=== PATIENT | female | born 1985 | race Caucasian/White ===

== ENCOUNTER 2017-04-14 00:24 | Emergency (ER) | payer MEDICAID ==
[2017-04-14 00:44] VITALS: O2SAT 98
--- NOTE | 2017-04-14 00:49 | EDPHY ---
H & P Stated Complaint: SI, NO SPECIFIC PLAN, CALLED CRISIS LINE Source: Patient - Personal History LMP (Females 10-55): 15-21 Days Ago Current Tetanus/Diphtheria Vaccine: Yes Tetanus Vaccine Date: 10/26/14 - Medical/Surgical History Hx Asthma: No Hx Chronic Respiratory Disease: No Hx Diabetes: No Hx Cardiac Disease: No Hx Renal Disease: No Hx Cirrhosis: No Hx Alcoholism: No Hx HIV/AIDS: No Hx Splenectomy or Spleen Trauma: No Other PMH: PMHx: RA,HYPOTHYROID, FIBROMYALGIA, anxiety, depression, SI w/ attempts. PSHx: denies - Social History Smoking Status: Former smoker HPI/ROS: HPI CHIEF COMPLAINT: Suicidal thoughts, severe depression HISTORY OF PRESENT ILLNESS: Patient very pleasant 31-year-old female, she has a history of severe depression with multiple psychiatric hospitalizations a suicide attempt in the past, she presents emergency room with suicidal ideation without a specific plan but is been feeling more depressed over the few days. She called the crisis hotline and [facility] was recommended come the emergency room. She came involuntary. She does state she feels suicidal. Worsening depression. She has not made any attempt tonight. Past Medical History: Severe depression with multiple psychiatric hospitalization Past Surgical History: No recent surgery Social History: Denies drugs alcohol tobacco. Family History: Noncontributory ROS REVIEW OF SYSTEMS: A comprehensive 10 point review of systems is otherwise negative aside from elements mentioned in the history of present illness. Exam Constitutional appears well nontoxic triage nursing summary reviewed, vital signs reviewed, awake/alert. Eyes normal conjunctivae and sclera, EOMI, PERRLA. HENT normal inspection, atraumatic, moist mucus membranes, no epistaxis, neck supple/ no meningismus, no raccoon eyes. Respiratory clear to auscultation bilaterally, normal breath sounds, no respiratory distress, no wheezing. Cardiovascular rate normal, regular rhythm, no murmur, no edema, distal pulses normal. Gastrointestinal soft, non-tender, no rebound, no guarding, normal bowel sounds, no distension, no pulsatile mass. Genitourinary no CVA tenderness. Musculoskeletal no midline vertebral tenderness, full range of motion, no calf swelling, no tenderness of extremities, no meningismus, good pulses, neurovascularly intact. Skin pink, warm, & dry, no rash, skin atraumatic. Neurologic awake, alert and oriented x 3, AAOx3, moves all 4 extremities equally, motor intact, sensory intact, CN II-XII intact, normal cerebellar, normal vision, normal speech. Psychiatric flat affect. Heme/Lymph/Immune no lymphadenopathy. Differential Diagnosis: Includes but is not limited to in a particular order severe depression, mood disorder, bipolar disorder, suicidal ideation. Medical Decision Making: Plan for this patient IV establishment blood draw for medical clearance. Patient need mental health evaluation. Re-evaluation: 0453: Patient has been seen evaluated by mental health. They would like to place her on M1 hold. They would like to pursue inpatient psychiatric hospitalization at most likely [address] [place] [address]. (Vivek Marquez) Constitutional: Initial Vital Signs Temperature (C) 36.6 C 04/14/17 00:40 Heart Rate 110 H 04/14/17 00:40 Respiratory Rate 18 04/14/17 00:40 Blood Pressure 135/96 H 04/14/17 00:40 O2 Sat (%) 98 04/14/17 00:40 O2 Delivery Mode Room Air Allergies/Adverse Reactions: No Known Allergies Allergy (Verified 04/14/17 00:38) Home Medications: Medication Instructions Recorded oxyCODONE IR [Oxycodone Ir (*)] 5 mg PO BID PRN 10/12/12 Tofacitinib Citrate [Xeljanz] 5 mg PO BID #0 10/27/14 Leflunomide [Arava 20 mg (*)] 20 mg PO Q2D 10/28/14 Multivitamins [Multivitamin (*)] 1 each PO HS 10/28/14 [place]-3 Fatty Acids [Fish Oil 1000 1,000 mg PO HS 10/28/14 mg (*)] Levothyroxine [Synthroid 125 mcg 125 mcg PO DAILY06 #30 tab 12/10/14 (*)] clonazePAM [klonoPIN (*)] 1 mg PO DAILY PRN #30 tab 12/10/14 Cyclobenzaprine [Flexeril 10 MG 10 mg PO HS PRN 11/22/15 (*)] Herbals/Supplements -Info Only 1 ea PO DAILY 11/22/15 Amphet Asp and D/Amphet [Adderall 20 mg PO BID@, #14 tab 11/27/15 20 mg (*)] Venlafaxine Xr [Effexor Xr] 300 mg PO DAILY #60 cap 11/27/15 ARIPiprazole [Abilify 10 mg (*)] 10 mg PO HS 04/14/17 buPROPion SR [Wellbutrin 100mg SR 200 mg PO DAILY 04/14/17 (*)] Medical Decision Making ED Course/Re-evaluation: 0700AM: Patient signed over to Dr. Bebeto Snider at 7am shift Change. (Vivek Marquez) I took over care of this patient at 3:00 p.m.. This patient is on an M1 hold for suicidal ideation and depression. She also has a history of recent polysubstance abuse. She is awaiting behavioral health evaluation. She has been medically cleared. (Shelia Tenorio) Care was turned over to me by Dr. Marquez at 7:00 a.m.. Patient is re- evaluated at 7:35 a.m.. Patient is sleeping. Vital signs are stable. Labs are reviewed. Mental health evaluation has been performed and placement is pending Patient remained stable. She has been given her regular prescribed medications 3:30 p.m. patient has been evaluated and accepted for admission at crisis stabilization unit at the [facility]. Appropriate paperwork has been filled out (Bebeto Snider) - Data Points Laboratory Results: Laboratory Results 04/14/17 01:12 04/14/17 01:12 Medications Given: Leflunomide (Arava) 20 mg PO DAILY [facility] Stop: 10/11/17 14:44 Last Admin: 04/14/17 15:31 Dose: 20 mg Venlafaxine HCl (Effexor Xr) 300 mg PO DAILY [facility] Stop: 10/11/17 14:44 Last Admin: 04/14/17 15:31 Dose: 300 mg Discontinued Medications Ibuprofen (Motrin) 600 mg PO EDNOW ONE Stop: 04/14/17 02:33 Last Admin: 04/14/17 02:34 Dose: 600 mg Lorazepam (Ativan) 1 mg PO EDNOW ONE Stop: 04/14/17 14:43 Last Admin: 04/14/17 15:31 Dose: 1 mg Departure - Departure Disposition: Other Psych, Not [place] Clinical Impression: Suicidal ideation Depression Qualifiers: Depression Type: major depressive disorder Major depression recurrence: recurrent Active/Remission status: currently active Major depression episode severity: severe Psychotic features: without psychotic features Qualified Code(s ): F33.2 - Major depressive disorder, recurrent severe without psychotic features Condition: Fair Referrals: Eloise Adams [Primary Care Provider] - As per Instructions
[2017-04-14 01:20] LABS: PLATELET COUNT 201 10^3/uL (150-400)
[2017-04-14] MEDS ORDERED: IBUPROFEN 600 MG TAB PO ONE (02:32)
[2017-04-14 07:58] VITALS: RESP 16
[2017-04-14] MEDS ORDERED: LORazepam 1 MG TAB PO ONE (14:42)
[2017-04-14] MEDS ORDERED: LEFLUNOMIDE 20 MG TAB PO SCH (14:45)
[2017-04-14] MEDS ORDERED: VENLAFAXINE XR 150 MG CAP PO SCH (14:45)
[2017-04-14 15:53] VITALS: BP 120/84; PULSE 82; TEMP 98.1
== END 2017-04-14 15:53 ==
DX: R45.851 Suicidal ideations (principal); F33.2 Major depressive disorder, recurrent severe without psychotic features; Z87.891 Personal history of nicotine dependence
CPT/HCPCS: 80305; G0480

== ENCOUNTER 2017-11-08 13:37 | Emergency (ER) | payer MEDICAID ==
[2017-11-08 13:47] VITALS: BP 132/102
--- NOTE | 2017-11-08 14:10 | EDPHY ---
H & P Stated Complaint: Feeling shaky and anxious this am, thinks r/t effexor. Time Seen by Provider: 11/08/17 14:09 HPI/ROS: CHIEF COMPLAINT: Concerned about serotonin syndrome HISTORY OF PRESENT ILLNESS: The patient presents to the ED with complaints of anxiety, restlessness and mild diaphoresis. She is concerned about the possibility of serotonin syndrome. The patient recently has been decreasing her Effexor dose. This was done because she was having similar symptoms several weeks ago. The patient denies any autonomic instability. She denies any complaints of chest pain or shortness of breath. The patient denies any suicidal or homicidal ideation. She is scheduled to see her prescriber at [facility] next week. REVIEW OF SYSTEMS: A comprehensive 10 point review of systems is otherwise negative aside from elements mentioned in the history of present illness. Source: Patient Exam Limitations: No limitations - Personal History LMP (Females 10-55): 15-21 Days Ago Current Tetanus Diphtheria and Acellular Pertussis (TDAP): Yes Tetanus Vaccine Date: 10/26/14 - Medical/Surgical History Hx Asthma: No Hx Chronic Respiratory Disease: No Hx Diabetes: No Hx Cardiac Disease: No Hx Renal Disease: No Hx Cirrhosis: No Hx Alcoholism: No Hx HIV/AIDS: No Hx Splenectomy or Spleen Trauma: No Other PMH: PMHx: RA,HYPOTHYROID, FIBROMYALGIA, anxiety, depression, SI w/ attempts. PSHx: denies - Social History Smoking Status: Former smoker - Physical Exam Exam: General Appearance: Alert, no distress Eyes: Pupils equal and round no pallor or injection ENT, Mouth: Mucous membranes moist Respiratory: There are no retractions, lungs are clear to auscultation Cardiovascular: Regular rate and rhythm Gastrointestinal: Abdomen is soft and nontender, no masses, bowel sounds normal Neurological: A&O, normal motor function, normal sensory exam, normal cranial nerves Skin: Warm and dry, no rashes Musculoskeletal: Neck is supple nontender Extremities: symmetrical, full range of motion Psychiatric: Anxious, no acute distress Constitutional: Initial Vital Signs Temperature (C) 36.9 C 11/08/17 13:44 Heart Rate 111 H 11/08/17 13:44 Respiratory Rate 16 11/08/17 13:44 Blood Pressure 132/102 H 11/08/17 13:44 O2 Sat (%) 100 11/08/17 13:44 O2 Delivery Mode Room Air Allergies/Adverse Reactions: No Known Allergies Allergy (Verified 04/14/17 00:38) Home Medications: Medication Instructions Recorded RX: oxyCODONE IR [Oxycodone Ir (*)] 5 mg PO BID PRN 10/12/12 RX: Tofacitinib Citrate [Xeljanz] 5 mg PO BID #0 10/27/14 RX: Leflunomide [Arava 20 mg (*)] 20 mg PO Q2D 10/28/14 RX: Multivitamins [Multivitamin 1 each PO HS 10/28/14 (*)] RX: [place]-3 Fatty Acids [Fish Oil 1,000 mg PO HS 10/28/14 1000 mg (*)] RX: Levothyroxine [Synthroid 125 125 mcg PO DAILY06 #30 tab 12/10/14 mcg (*)] RX: clonazePAM [klonoPIN (*)] 1 mg PO DAILY PRN #30 tab 12/10/14 RX: Cyclobenzaprine [Flexeril 10 10 mg PO HS PRN 11/22/15 MG (*)] RX: Amphet Asp and D/Amphet 20 mg PO BID@, #14 tab 11/27/15 [Adderall 20 mg (*)] RX: ARIPiprazole [Abilify 10 mg 10 mg PO HS 04/14/17 (*)] RX: Venlafaxine Xr [Effexor Xr] 225 mg PO DAILY 11/08/17 Medical Decision Making - Diagnostics EKG Interpretation: EKG: Complete interpretation has been separately recorded in the [employer] archive. Summary impression: Sinus rhythm, rate 96 ED Course/Re-evaluation: The patient is well-appearing without clinical evidence serotonin syndrome. The patient denies any suicidal homicidal ideation. She is on a number of psychiatric medications. She is scheduled to see her prescriber next week. At this point time I recommended she continue to follow up with them as scheduled. She will be discharged in the emergency department with customary aftercare instructions and return precautions. Differential Diagnosis: Differential diagnosis considered includes anxiety, depression, serotonin syndrome, medication side effect, SSRI withdrawal symptoms Departure - Departure Disposition: Home, Routine, Self-Care Clinical Impression: Generalized anxiety disorder Condition: Good Instructions: Anxiety (ED) Additional Instructions: 1. I do not believe your experiencing serotonin syndrome. It certainly is possible your experiencing symptoms secondary to decreasing your Effexor. 2. I do recommend that you follow up with your regular prescriber regarding the symptoms you are experiencing. 3. Please return to the ED for markedly worsening symptoms or other concerns. Referrals: Eloise Adams [Primary Care Provider] - As per Instructions
--- NOTE | 2017-11-08 14:31 | CPEKG ---
Test Reason : OPEN Blood Pressure : / mmHG Vent. Rate : 096 BPM Atrial Rate : 096 BPM P-R Int : 138 ms QRS Dur : 102 ms QT Int : 358 ms P-R-T Axes : 081 076 064 degrees QTc Int : 453 ms Sinus rhythm Confirmed by Robert Mcfarland ([id number]) on 11/08/2017 2:31:08 PM Referred By: Confirmed By:Robert Mcfarland
== END 2017-11-08 14:30 | disposition home or self-care (01) ==
DX: F41.9 Anxiety disorder, unspecified (principal); M06.9 Rheumatoid arthritis, unspecified; E03.9 Hypothyroidism, unspecified; Z87.891 Personal history of nicotine dependence

== ENCOUNTER 2018-01-12 16:35 | Emergency (ER) | payer MEDICAID ==
--- NOTE | 2018-01-12 17:12 | EDPHY ---
H & P Stated Complaint: PTSD/Fatigue Time Seen by Provider: 01/12/18 16:51 HPI/ROS: CHIEF COMPLAINT: "I'm just so tired" HISTORY OF PRESENT ILLNESS: 32-year-old female history of PTSD, mood disorder, took a Lyft to the ER, complaining of fatigue for several weeks. Today is Saturday. She describes no pain. She describes intermittent nausea with no vomiting. No abdominal pain. No headache. No suicidal or homicidal ideation. No self-injurious intent. No alcohol or drug use. Sore throat. She has an appointment with Eloise Adams at [facility] tomorrow morning. History of hypothyroidism, denies change in her thyroid medication dosage. PRIMARY CARE PROVIDER: Eloise Adams [facility] REVIEW OF SYSTEMS: 10 systems reviewed and negative with the exception of the elements mentioned in the history of present illness PAST MEDICAL & SURGICAL HISTORY: Mood disorder. PTSD. Prior history of suicidal ideation. SOCIAL HISTORY:Denies acute alcohol or drug use PHYSICAL EXAM (Prior to examination, patient consented to physical exam, hands were washed and my usual and customary physical exam procedures followed) 1) GENERAL: Well-developed, well-nourished, alert and oriented. Appears to be in no acute distress. Appears nontoxic. Answering questions appropriately. 2) HEAD: Normocephalic, atraumatic 3) HEENT: Pupils equal, round, reactive to light bilaterally. Sclera anicteric. Nasopharynx, oropharynx, clear, no lesions. Moist Mucous membranes. No Tonsillar enlargement or exudate. Ears bilaterally with normal tympanic membranes. 4) NECK: Full range of motion, no meningeal signs. No adenopathy. No nuchal rigidity. 5) LUNGS: Clear auscultation bilaterally, no wheezes, no rhonchi, no retractions. 6) HEART: Regular rate and rhythm, no murmur, no heave, no gallop. 7) ABDOMEN: No guarding, no rebound, no focal tenderness, negative McBurney's, negative Schwartz's, negative Rovsing's, negative peritoneal sign, no splenomegaly. 8) MUSCULOSKELETAL: Moving all extremities, no focal areas of tenderness, no obvious trauma. No peripheral edema or discoloration. 9) BACK: No CVA tenderness, no midline vertebral tenderness, no fluctuance, no step-off, no obvious trauma, no visual or palpable abnormality. 10) SKIN: No rash, no petechiae. 11) Psychiatric: Patient is oriented X 3, there is no agitation. 12) NEURO: Awake, alert, and oriented to person, place and time. Answers questions appropriately. There were no obvious focal neurologic abnormalities. No cerebellar dysfunction. Normal steady gait. Upper and lower extremities bilaterally with strength 5 / 5, reflexes 2+. DIFFERENTIAL DIAGNOSIS: In no particular order include but limited to PTSD, depression, somatization, hypothyroid - Personal History LMP (Females 10-55): 22-28 Days Ago Current Tetanus/Diphtheria Vaccine: Yes Tetanus Vaccine Date: 10/26/14 - Medical/Surgical History Hx Asthma: No Hx Chronic Respiratory Disease: No Hx Diabetes: No Hx Cardiac Disease: No Hx Renal Disease: No Hx Cirrhosis: No Hx Alcoholism: No Hx HIV/AIDS: No Hx Splenectomy or Spleen Trauma: No Other PMH: PMHx: RA,HYPOTHYROID, FIBROMYALGIA, anxiety, depression, SI w/ attempts. PSHx: denies - Social History Smoking Status: Current some day smoker Constitutional: Initial Vital Signs Temperature (C) 36.8 C 01/12/18 16:39 Heart Rate 116 H 01/12/18 16:39 Respiratory Rate 18 01/12/18 16:39 Blood Pressure 110/81 H 01/12/18 16:39 O2 Sat (%) 95 01/12/18 16:39 O2 Delivery Mode Room Air Allergies/Adverse Reactions: No Known Allergies Allergy (Verified 01/12/18 16:42) Home Medications: Medication Instructions Recorded oxyCODONE IR [Oxycodone Ir (*)] 5 mg PO BID PRN 10/12/12 Tofacitinib Citrate [Xeljanz] 5 mg PO BID #0 10/27/14 Leflunomide [Arava 20 mg (*)] 20 mg PO Q2D 10/28/14 Multivitamins [Multivitamin (*)] 1 each PO HS 10/28/14 [place]-3 Fatty Acids [Fish Oil 1000 1,000 mg PO HS 10/28/14 mg (*)] Levothyroxine [Synthroid 125 mcg 125 mcg PO DAILY06 #30 tab 10/09/15 (*)] clonazePAM [klonoPIN (*)] 1 mg PO DAILY PRN #30 tab 12/10/14 Cyclobenzaprine [Flexeril 10 MG 10 mg PO HS PRN 11/22/15 (*)] Amphet Asp and D/Amphet [Adderall 20 mg PO BID@, #14 tab 11/27/15 20 mg (*)] ARIPiprazole [Abilify 10 mg (*)] 10 mg PO HS 04/14/17 Venlafaxine Xr [Effexor Xr] 225 mg PO DAILY 11/08/17 Medical Decision Making ED Course/Re-evaluation: 5:15 p.m.: I reviewed the patient's old medical records. She denies suicidal or homicidal ideation. She has an appointment at the [facility] tomorrow morning. Nonfocal exam. Will obtain laboratory studies on the patient including thyroid studies History of hypothyroidism. Patient noted to be tachycardic at 116.. Will administer IV fluids. I saw this patient independently based on established practice protocols. Care of patient under supervision of secondary supervising physician Dr Tenorio. 6:02 p.m.: Re-evaluation. Reviewed the patient her laboratory studies. TSH is pending. I do not think the patient is to wait for this. She has an appointment at the [facility] tomorrow morning (Saturday). Her provider there may follow up on these results which should be return later this evening. This point I do not think that further intervention indicated. She feels comfortable being discharged. My usual and customary discharge precautions and instructions provided. - Data Points Laboratory Results: Laboratory Results 01/12/18 17:20 01/12/18 17:20 01/12/18 01/12/18 01/12/18 17:20 17:20 17:20 WBC 5.84 10^3/uL 10^3/uL (3.80-9.50) RBC 4.95 10^6/uL 10^6/uL (4.18-5.33) Hgb 14.3 g/dL g/dL (12.6-16.3) Hct 42.6 % % (38.0-47.0) MCV 86.1 fL fL (81.5-99.8) MCH 28.9 pg pg (27.9-34.1) MCHC 33.6 g/dL g/dL (32.4-36.7) RDW 12.7 % % (11.5-15.2) Plt Count 199 10^3/uL 10^3/uL (150-400) MPV 10.0 fL fL (8.7-11.7) Neut % (Auto) 70.2 % % (39.3-74.2) Lymph % (Auto) 18.0 % % (15.0-45.0) [place] % (Auto) 10.6 % % (4.5-13.0) Eos % (Auto) 0.0 % L % (0.6-7.6) Baso % (Auto) 0.9 % % (0.3-1.7) Nucleat RBC Rel Count 0.0 % % (0.0-0.2) Absolute Neuts (auto) 4.10 10^3/uL 10^3/uL (1.70-6.50) Absolute Lymphs (auto) 1.05 10^3/uL 10^3/uL (1.00-3.00) Absolute Monos (auto) 0.62 10^3/uL 10^3/uL (0.30-0.80) Absolute Eos (auto) 0.00 10^3/uL L 10^3/uL (0.03-0.40) Absolute Basos (auto) 0.05 10^3/uL 10^3/uL (0.02-0.10) Absolute Nucleated RBC 0.00 10^3/uL 10^3/uL (0-0.01) Immature Gran % 0.3 % % (0.0-1.1) Immature Gran # 0.02 10^3/uL 10^3/uL (0.00-0.10) Sodium 138 mEq/L mEq/L (135-145) Potassium 3.9 mEq/L mEq/L (3.3-5.0) Chloride 106 mEq/L mEq/L (97-110) Carbon Dioxide 24 mEq/l mEq/l (22-31) Anion Gap 8 mEq/L mEq/L (6-14) BUN 12 mg/dL mg/dL (7-23) Creatinine 0.6 mg/dL mg/dL (0.6-1.0) Estimated GFR > 60 Glucose 94 mg/dL mg/dL (70-100) Calcium 9.0 mg/dL mg/dL (8.5-10.4) TSH Pending Beta HCG, Qual NEGATIVE Monoscreen NEGATIVE (NEGATIVE) Medications Given: Discontinued Medications Sodium Chloride (Ns) 1,000 mls @ 0 mls/hr IV ONCE ONE PRN Reason: Wide Open Stop: 01/12/18 17:20 Last Admin: 01/12/18 17:24 Dose: 1,000 mls Departure - Departure Disposition: Home, Routine, Self-Care Clinical Impression: Fatigue Condition: Good Instructions: Fatigue (ED) Additional Instructions: Keep her appointment with Eloise Adams tomorrow morning. She may follow up on your TSH results. Referrals: Eloise Adams [Primary Care Provider] - 01/13/18 9:00 am
[2018-01-12] MEDS ORDERED: NS 1,000 ML IV ONE (17:19)
[2018-01-12 17:39] LABS: PLATELET COUNT 199 10^3/uL (150-400)
[2018-01-12 18:20] VITALS: BP 126/87
--- NOTE | 2018-01-13 06:16 | CPEKG ---
Test Reason : OPEN Blood Pressure : / mmHG Vent. Rate : 094 BPM Atrial Rate : 095 BPM P-R Int : 133 ms QRS Dur : 103 ms QT Int : 347 ms P-R-T Axes : 087 075 061 degrees QTc Int : 434 ms Sinus rhythm Probable left atrial enlargement Confirmed by Mariluz Rhodes ([id number]) on 01/13/2018 6:15:29 AM Referred By: Confirmed By:Mariluz Rhodes
== END 2018-01-12 18:20 | disposition home or self-care (01) ==
DX: R53.83 Other fatigue (principal); F43.10 Post-traumatic stress disorder, unspecified; F39 Unspecified mood [affective] disorder; M06.9 Rheumatoid arthritis, unspecified; E03.9 Hypothyroidism, unspecified; M79.7 Fibromyalgia; Z72.0 Tobacco use